=== PATIENT | male | born 1975 | race African-American/Black ===

== ENCOUNTER → 2020-06-30 06:47 | Outpatient (CLI) | payer OTHER, SELFPAY ==
--- NOTE | 2020-06-30 | DI.MRI.S_ITS ---
PROCEDURE: MR KNEE LT WO CON INDICATIONS: Unilateral primary osteoarthritis, left knee TECHNIQUE: Noncontrast sagittal PD fast spin echo and T2 fast spin echo with fat saturation, sagittal 3-D FLASH with fat saturation; coronal T1 spin echo and PD fast spin echo with fat saturation, and axial PD fast spin echo with fat saturation through the knee. COMPARISON: [facility], MR, KNEE WITH CONTRAST, 09/19/2016, 14:30. FINDINGS: Image quality: Excellent. Menisci: There is moderate degenerative tearing of the lateral meniscus primarily involving the body and posterior horn. Degenerative signal extends into the meniscal root ligament without rupture. There is mild peripheral extrusion of the lateral meniscus. Mild degenerative signal is also present within the medial meniscus. Cruciate ligaments: The anterior and posterior cruciate ligaments appear intact. Medial structures: The medial collateral ligament appears intact. The semimembranosus tendon insertions and meniscocapsular junction appear intact. Visualized portions of the pes anserinus tendons appear intact without associated bursal fluid collections. Lateral structures: The lateral collateral ligament, long and short heads of the biceps femoris tendon appear intact. The popliteus tendon appears intact. Iliotibial band appears normal. Anterior structures: The quadriceps and patellar tendons appear intact. A corticated ossicle is demonstrated along the distal patellar tendon likely representing sequelae of prior Shawmut-Schlatter fragmentation at the tibial tuberosity. There is mild lateral shift of the patella. No femoral trochlear dysplasia or ventral trochlear prominence. There are fibrotic changes within the infrapatellar fat pad compatible with scarring or possibly an infrapatellar plica. Bones and cartilage: No bone marrow contusions or fractures. There is prominent tricompartmental osteophytosis including along the articular surfaces of the medial compartment. There is severe cartilage thinning in the lateral compartment including areas of apparent full-thickness cartilage loss. There is associated mild subchondral edema. In the medial compartment, there is moderate cartilage thinning with superficial chondral fissuring. In the patellofemoral compartment, there is moderate cartilage thinning with superficial chondral fissuring most prominent along the median ridge of the patella. Joint space: There is a moderate joint effusion with multiple small filling defects compatible small joint bodies or synovitis. No Kirkland's cyst. Normal appearing synovial plicae are incidentally noted. IMPRESSION: 1. Moderate degenerative tearing of the medial meniscus as described. 2. Tricompartmental osteoarthritic changes most severe within the lateral compartment. 3. Moderate joint effusion with small filling defects consistent with small joint bodies or synovitis. 4. Mild lateral tilt of the patella. 5. Small corticated ossicle along the distal patellar tendon suggestive of sequelae of prior Cindy-Schlatter's disease. Dictated by: Milo Pearce M.D. on 06/30/2020 at 9:36 Approved by: Milo Pearce M.D. on 06/30/2020 at 10:16
== END ==
PROVIDERS: PCP Pediatrics; Referring Provider Orthopaedic Surgery; Visit Provider Orthopaedic Surgery
DX: M17.12 Unilateral primary osteoarthritis, left knee (principal); M23.222 Derangement of posterior horn of medial meniscus due to old tear or injury, left knee; M25.462 Effusion, left knee
CPT/HCPCS: 73721

== ENCOUNTER → 2022-03-16 13:38 | Outpatient (CLI) | payer OTHER, SELFPAY ==
--- NOTE | 2022-03-16 | DI.MRI.S_ITS ---
PROCEDURE: MR LUMBAR SPINE WO CON INDICATIONS: RADICULOPATHY TECHNIQUE: Noncontrast sagittal T1 spin echo and T2 fast echo, sagittal STIR, and T2 fast spin echo through the lumbar spine. In cases with scoliosis, additional coronal T2 fast spin echo may be performed. COMPARISON: None. FINDINGS: Image quality: Excellent. Alignment and Curvature: There is normal bony alignment. Bone Marrow: Marrow is of normal overall signal. No acute vertebral body compression fractures. Spinal Cord: Conus medullaris terminates at the normal level. Visualized cord demonstrates normal signal and size. Paraspinous Soft Tissues: No paravertebral masses. T12-L1: Normal appearance. L1-L2: Normal appearance. L2-L3: Normal appearance. L3-L4: Normal appearance. L4-L5: Disc desiccation and disc height loss. Diffuse disc bulge flattens the ventral thecal sac. Superimposed protrusion in the left subarticular zone and left foraminal zone with an associated annular fissure. There is mild displacement of the descending left L5 nerve roots in the left subarticular zone and moderate left neural foraminal stenosis with close approximation and possible abutment of the exiting left L4 nerve roots. L5-S1: Normal appearance. IMPRESSION: Disc protrusion with annular fissure in the left subarticular and foraminal zones at L4-L5, producing mild mass effect on the descending left L5 nerve roots and moderate left neural foraminal narrowing. No significant degenerative changes otherwise. Dictated by: Jose Luis Blancas M.D. on 03/17/2022 at 8:16 Approved by: Jose Luis Blancas M.D. on 03/17/2022 at 8:18
== END ==
PROVIDERS: PCP Pediatrics; Referring Provider Student in an Organized Health Care Education/Training Program; Visit Provider Student in an Organized Health Care Education/Training Program
DX: M51.16 Intervertebral disc disorders with radiculopathy, lumbar region (principal)
CPT/HCPCS: 72148